=== PATIENT | male | born 1950 | race African-American/Black ===

== ENCOUNTER 2020-04-15 19:21 | Inpatient (IN) | payer MEDICARE, MEDICAID ==
[~2020-04-15] VITALS: Ht 172.7 cm; Wt 101.6 kg
[~2020-04-15 19:21] MED LIST: ATOR40TA28 PO; CARV12 PO; GABA-1216 PO; INSLAN SQ; MIRALAX PO; OMEP20 PO; PHOSLOC PO; SENN-277 PO; SERT50TA12 PO
[2020-04-15] MEDS ORDERED: IOVERSOL 350 MG/ML 100 ML VIAL ONE (19:34)
[2020-04-15] MEDS ORDERED: SODIUM CHLORIDE 0.9% 100 ML ONE (19:34)
[2020-04-15 19:48] LABS: BASOPHILS % (AUTO) 1.2 % (0.0-2.0); EOSINOPHILS % (AUTO) 2.1 % (1.0-6.0); HEMATOCRIT 32.2 % (41-53); HEMOGLOBIN 10.9 g/dL (13.5-17.5); LYMPHOCYTES # (AUTO) 0.7 K/uL (1.0-4.8); LYMPHOCYTES % (AUTO) 13.9 % (22.0-44.0); MEAN CORPUSCULAR HEMOGLOBIN 31.8 pg (26.0-34.0); MEAN CORPUSCULAR HGB CONC 33.9 G/dL (31.0-37.0); MEAN CORPUSCULAR VOLUME 94 fL (80-100); MONOCYTES # (AUTO) 0.6 K/uL (0.1-1.0); MONOCYTES % (AUTO) 11.5 % (2.0-9.0); NEUTROPHILS # (AUTO) 3.5 K/uL (1.8-7.7); NEUTROPHILS % (AUTO) 71.3 % (40.0-70.0); PLATELET COUNT (AUTO) 183 K/uL (150-450); RED BLOOD CELL COUNT(AUTO) 3.44 MIL/uL (4.50-5.90)
[2020-04-15 20:04] LABS: CALCIUM, TOTAL 8.5 mg/dL (8.8-10.5); CREATININE 4.49 mg/dL (0.60-1.30)
[2020-04-15 20:10] LABS: ALBUMIN 3.6 g/dL (3.4-5.0); BILIRUBIN,TOTAL 0.4 mg/dL (0.1-1.0); TOTAL PROTEIN, SERUM 7.8 g/dL (6.4-8.2)
[2020-04-15] MEDS ORDERED: ASPIRIN 325 MG TABLET PO ONE (20:30)
[2020-04-15] MEDS ORDERED: ACETAMINOPHEN 325 MG TABLET PO PRN (21:15)
[2020-04-15] MEDS ORDERED: NITROGLYCERIN 2% (1 GM=INCH) PACKET TP ONE ×2 (21:29→21:30)
[2020-04-15] MEDS ORDERED: DEXTROSE 50%-WATER 25 GM/50 ML SYRINGE IVP PRN (21:30)
[2020-04-15] MEDS ORDERED: HydrALAZINE HCL 20 MG/ML VIAL IVP PRN (21:30)
[2020-04-15] MEDS ORDERED: INSULIN LISPRO 100 UNITS/ML SQ PRN (21:30)
[2020-04-15 21:51] LABS: C-REACTIVE PROTEIN QUANT 3.69 mg/dL (0.00-0.30); THYROID STIMULATING HORMONE 1.2 uIU/mL (0.36-3.74)
[2020-04-15 22:02] VITALS: BP 160/89
[2020-04-15] MEDS ORDERED: ONDANSETRON HCL 4 MG/2 ML VIAL IVP PRN (22:15)
[2020-04-15] MEDS ORDERED: POLY15DR29 OU (22:18)
[2020-04-15] MEDS ORDERED: ASPI-556 PO (22:18)
[2020-04-15] MEDS ORDERED: OMEP-99 PO (22:22)
[2020-04-15] MEDS ORDERED: SEVE0.8P PO (22:22)
[2020-04-15] MEDS ORDERED: PREG50CA63 PO (22:22)
[2020-04-15] MEDS ORDERED: ATOR40TA71 PO (22:22)
[2020-04-15] MEDS ORDERED: CARV12.530 PO (22:22)
[2020-04-15] MEDS ORDERED: SERT20OR6 PO (22:22)
[2020-04-15] MEDS ORDERED: LIDO700A15 TP (22:22)
[2020-04-15] MEDS ORDERED: POLY17PO PO (22:22)
[2020-04-15] MEDS ORDERED: POLYETHYLENE GLYCOL 3350 17 GM PACKET PO PRN (22:30)
[2020-04-15 22:31] LABS: ERYTHROCYTE SEDIMENTATION RATE 77 MM/HR (0-15)
[2020-04-15 23:29] VITALS: BP 184/99
[2020-04-16] MEDS: HEPARIN SODIUM,PORCINE 5,000 UNITS/ML VIAL SQ SCH ×2 (00:27→08:45)
[2020-04-16] MEDS: HYPROMELLOSE 0.5% 15 ML OPHTHALMIC SOLUTION OU SCH ×2 (00:27→06:53)
[2020-04-16 04:05] VITALS: BP 135/78
[2020-04-16 07:36] LABS: CHOL/HDL RATIO 3.7 (4.2-7.3)
[2020-04-16 07:39] LABS: HEMOGLOBIN A1C 5.3 % (3.8-5.6)
[2020-04-16] MEDS ORDERED: SEVELAMER CARBONATE 800 MG TABLET PO SCH (08:00)
[2020-04-16 08:56] VITALS: BP 112/67
[2020-04-16] MEDS ORDERED: ATORVASTATIN CALCIUM 40 MG TABLET PO SCH (09:00)
[2020-04-16] MEDS ORDERED: ASPIRIN 81 MG CHEWABLE TABLET PO SCH (09:00)
[2020-04-16] MEDS ORDERED: SERTRALINE HCL 50 MG TABLET PO SCH (09:00)
[2020-04-16] MEDS ORDERED: PREGABALIN 50 MG CAPSULE PO SCH (09:00)
[2020-04-16 11:16] LABS: GLUCOMETER DEV NAME(LOC) 5N.1; GLUCOSE,POINT OF CARE 99 MG/DL (70-110)
[2020-04-16] MEDS ORDERED: HEPARIN SODIUM,PORCINE 5,000 UNITS/ML VIAL SQ SCH (21:00)
[2020-04-19] MEDS ORDERED: SEVE800T17 PO (11:57)
== END 2020-04-16 13:00 | disposition left against medical advice (07) | DRG 291 ==
LOC: EMS 19:22 → EDBD 19:22 → 5S 20:30
PROVIDERS: ADMIT Internal Medicine; ATTEND Internal Medicine
DX: I13.2 Hypertensive heart and chronic kidney disease with heart failure and with stage 5 chronic kidney disease, or end stage renal disease (principal); N18.6 End stage renal disease; G93.40 Encephalopathy, unspecified; E11.22 Type 2 diabetes mellitus with diabetic chronic kidney disease; E11.51 Type 2 diabetes mellitus with diabetic peripheral angiopathy without gangrene; I50.9 Heart failure, unspecified; Z79.4 Long term (current) use of insulin; Z99.2 Dependence on renal dialysis; Z91.19 Patient's noncompliance with other medical treatment and regimen; Z79.899 Other long term (current) drug therapy
CPT/HCPCS: 70496; 70551; 83036; 83921; 84443; 85651; 86140; 92610; 93005; 97162; 97530; 99291; G0378; G0480; J1644; J2405; J7050; 36415-L1; 36415-TC; 70450; 70450-TC; 71045-TC; 80061-TC

== ENCOUNTER 2021-01-15 19:13 | Emergency (ER) | payer MEDICARE ==
[~2021-01-15] VITALS: Ht 177.8 cm; Wt 83.4 kg
[~2021-01-15 19:13] MED LIST changes: +ASPI-556 PO; +LIDO700A15 TP; -MIRALAX PO; +POLY15DR29 OU; +POLY17PO PO; +PREG50CA63 PO; +SERT-158 PO; -SERT50TA12 PO; +SEVE800T17 PO
[2021-01-15] MEDS ORDERED: NALOXONE HCL 1 MG/ML 2 ML SYG IVP ONE (20:00)
[2021-01-15 20:27] LABS: COVID AG,FIA SOURCE NASOPHARYNGEAL
[2021-01-15 20:32] LABS: BASOPHILS % (AUTO) 0.7 % (0.0-2.0); EOSINOPHILS % (AUTO) 2.1 % (1.0-6.0); HEMATOCRIT 34.6 % (41-53); HEMOGLOBIN 10.9 g/dL (13.5-17.5); LYMPHOCYTES # (AUTO) 0.5 K/uL (1.0-4.8); LYMPHOCYTES % (AUTO) 12.5 % (22.0-44.0); MEAN CORPUSCULAR HEMOGLOBIN 28.6 pg (26.0-34.0); MEAN CORPUSCULAR HGB CONC 31.4 G/dL (31.0-37.0); MEAN CORPUSCULAR VOLUME 91 fL (80-100); MONOCYTES # (AUTO) 0.4 K/uL (0.1-1.0); NEUTROPHILS # (AUTO) 2.8 K/uL (1.8-7.7); NEUTROPHILS % (AUTO) 73.7 % (40.0-70.0); PLATELET COUNT (AUTO) 201 K/uL (150-450); RED CELL DISTRIBUTION WIDTH 18.8 % (11.5-14.5)
[2021-01-15 20:42] LABS: ANION GAP 18 mmol/L (8-16); CALCIUM, TOTAL 9.2 mg/dL (8.8-10.5); CARBON DIOXIDE 26 mmol/L (22-29); CHLORIDE 99 mmol/L (98-107); CREATININE 5.61 mg/dL (0.60-1.30); GLOMERULAR FILTR. RATE CALC 12 mL/min (>60); GLUCOSE,RANDOM 81 mg/dL (70-110); POTASSIUM 3.7 mmol/L (3.5-5.1); SODIUM SERUM 143 mmol/L (136-145); UREA NITROGEN, BLOOD 38 mg/dL (7-18)
[2021-01-15] MEDS ORDERED: LORazepam 2 MG/ML VIAL IVP ONE ×2 (20:45→21:00)
[2021-01-15] MEDS ORDERED: LABETALOL HCL 5 MG/ML 20 ML VIAL IVP ONE (20:45)
[2021-01-15 20:49] LABS: LACTIC ACID 1.3 mmol/L (0.4-2.0)
[2021-01-15 20:59] LABS: B-TYPE NATRIURETIC PEPTIDE 1950 pg/mL (0-100)
[2021-01-15 21:04] LABS: TROPONIN I 1.85 ng/mL (0.00-0.05)
[2021-01-15 21:05] LABS: AMMONIA < 10 umol/L (11-32)
[2021-01-15 21:15] LABS: ALANINE AMINOTRANSFERASE 11 U/L (12-78); ALBUMIN 3.6 g/dL (3.4-5.0); ALKALINE PHOSPHATASE 118 U/L (46-116); ASPARTATE AMINOTRANSFERASE 15 U/L (15-37); BILIRUBIN,TOTAL 0.5 mg/dL (0.1-1.0); CREATINE KINASE, TOTAL ONLY 151 U/L (39-308); LIPASE 17 U/L (73-393); TOTAL PROTEIN, SERUM 8.4 g/dL (6.4-8.2)
[2021-01-15] MEDS ORDERED: ASPIRIN 325 MG TABLET PO ONE (21:15)
[2021-01-15] MEDS ORDERED: ASPIRIN 300 MG RECTAL SUPPOSITORY PR ONE (21:45)
[2021-01-15 22:02] LABS: INR 1.1 (0.9-1.1); PROTHROMBIN TIME 11.9 SEC (9.4-11.6)
[2021-01-15] MEDS ORDERED: PANT-31 PO (22:20)
[2021-01-15] MEDS ORDERED: AMLO-257 PO (22:20)
[2021-01-15] MEDS ORDERED: INSU100V39 SQ (22:20)
[2021-01-15] MEDS ORDERED: MELA5TAB3 PO (22:20)
[2021-01-15] MEDS ORDERED: ACET325S20 PR (22:20)
[2021-01-15] MEDS ORDERED: OXYC10TA59 PO (23:21)
[2021-01-16 01:25] LABS: SALICYLATE 2.8 mg/dL (2.8-20.0)
[2021-01-16 01:28] LABS: APPEARANCE,URINE CLEAR (CLEAR); BILIRUBIN,URINE NEGATIVE (NEGATIVE); GLUCOSE, URINE (UA) 100 mg/dL (NEGATIVE); KETONES,URINE TRACE mg/dL (NEGATIVE); LEUKOCYTE ESTERASE ,URINE NEGATIVE (NEGATIVE); NITRATE,URINE NEGATIVE (NEGATIVE); OCCULT BLOOD,URINE TRACE (NEGATIVE); PH,URINE 7.5 (5.0-8.0); PROTEIN,URINE SEE CONFIRM (NEGATIVE); UROBILINOGEN,URINE 0.2 mg/dL (<=1.0)
[2021-01-16 01:30] LABS: ACETAMINOPHEN < 2 mcg/mL (10-30)
[2021-01-16 01:54] LABS: AMPHET/METH SCREEN,URINE NEGATIVE (NEGATIVE); BARBITURATE SCREEN, URINE NEGATIVE (NEGATIVE); BENZODIAZEPINES SCREEN,URINE NEGATIVE (NEGATIVE); CANNABINOID SCREEN,URINE NEGATIVE (NEGATIVE); COCAINE SCREEN,URINE NEGATIVE (NEGATIVE); METHADONE SCREEN, URINE NEGATIVE (NEGATIVE); OPIATE SCREEN,URINE NEGATIVE (NEGATIVE)
[2021-01-16 01:58] LABS: BACTERIA,URINE None Seen /HPF (None Seen); SQUAMOUS EPITHELIAL CELL,UR Rare /LPF (None Seen); SULFOSALICYLIC ACID,URINE 4+ (Negative)
[2021-01-16 02:01] LABS: PHENCYCLIDINE SCREEN,URINE NEGATIVE (NEGATIVE)
[2021-01-16 04:09] VITALS: BP 158/86
== END 2021-01-16 05:07 | disposition designated cancer center or children's hospital (05) ==
LOC: EMS 19:17
DX: T40.2X1A Poisoning by other opioids, accidental (unintentional), initial encounter (principal); I21.4 Non-ST elevation (NSTEMI) myocardial infarction; I67.9 Cerebrovascular disease, unspecified; R41.82 Altered mental status, unspecified; E11.22 Type 2 diabetes mellitus with diabetic chronic kidney disease; I13.2 Hypertensive heart and chronic kidney disease with heart failure and with stage 5 chronic kidney disease, or end stage renal disease; I50.9 Heart failure, unspecified; N18.6 End stage renal disease; F17.200 Nicotine dependence, unspecified, uncomplicated; Z20.822 Contact with and (suspected) exposure to COVID-19; Z99.2 Dependence on renal dialysis; Z79.82 Long term (current) use of aspirin; Z79.4 Long term (current) use of insulin; Y92.89 Other specified places as the place of occurrence of the external cause
CPT/HCPCS: 36415; 70450; 71045; 80053; 80307; 81001; 82140; 82271; 82550; 83605; 83690; 83735; 83880; 84484; 85025; 85610; 85730; 87040; 87426; 93005; 96374; 96375; 99291; 99292; G0480; J2060; J2310; J3490; G0481